=== PATIENT | female | born 1950 | race Hispanic/Latino ===

== ENCOUNTER → 2017-11-08 | Outpatient (CLI) | payer MEDICARE | END | disposition home or self-care (01) | LOC: SHCH 14:42 | PROVIDERS: ATTEND Internal Medicine Cardiovascular Disease | DX: I87.2 Venous insufficiency (chronic) (peripheral) (principal) | CPT/HCPCS: 93971 ==

== ENCOUNTER 2017-11-13 17:08 | Emergency (ER) | payer MEDICARE ==
[2017-11-13] MEDS ORDERED: FLUORESCEIN SODIUM 0.6 MG STRIP ONE (17:41)
[2017-11-13] MEDS ORDERED: TETRACAINE HCL 0.5% 4 ML OPHTH SOLN ONE (17:41)
[2017-11-13] MEDS ORDERED: NA BORATE/BORIC AC/H2O/NACL 120 ML OPHTH IRRIG SOLN ONE (17:42)
[2017-11-13] MEDS ORDERED: DEXAMETHASONE SOD PHOSPHATE 10MG/ML 1ML VIAL ONE (18:39)
[2017-11-13] MEDS ORDERED: CEFTRIAXONE SODIUM 1 GM ONE (18:39)
[2017-11-13] MEDS ORDERED: LIDOCAINE HCL-MPF 1% 2ML VIAL ONE (18:39)
[2017-11-13] MEDS ORDERED: KETOROLAC TROMETHAMINE 30MG/ML ONE (18:40)
== END 2017-11-13 19:24 | disposition home or self-care (01) ==
LOC: EDH 17:08
DX: S05.02XA Injury of conjunctiva and corneal abrasion without foreign body, left eye, initial encounter (principal); L03.213 Periorbital cellulitis; X58.XXXA Exposure to other specified factors, initial encounter; Y93.89 Activity, other specified; Y92.89 Other specified places as the place of occurrence of the external cause; Y99.8 Other external cause status
CPT/HCPCS: 70450; 70486; 96372 ×3; 99284; J0696; J1100; J1885; J3490

== ENCOUNTER → 2017-12-20 | Outpatient (CLI) | payer MEDICARE | END | disposition home or self-care (01) | LOC: SHCH 13:55 | PROVIDERS: ATTEND Internal Medicine Cardiovascular Disease | DX: Z09 Encounter for follow-up examination after completed treatment for conditions other than malignant neoplasm (principal) | CPT/HCPCS: 93971 ==

== ENCOUNTER → 2018-02-16 | Outpatient (CLI) | payer MEDICARE | END | disposition home or self-care (01) | LOC: SHCH 13:09 | PROVIDERS: ATTEND Internal Medicine Cardiovascular Disease | DX: I87.2 Venous insufficiency (chronic) (peripheral) (principal); I82.403 Acute embolism and thrombosis of unspecified deep veins of lower extremity, bilateral | CPT/HCPCS: 93970 ==

== ENCOUNTER 2022-07-21 07:34 | Inpatient (IN) | payer OTHER, MEDICARE ==
[2022-07-21] VITALS (26 sets, daily range): BP systolic 132–151; BP diastolic 45–86
[~2022-07-21 07:34] MED LIST: ALEN70TA80 PO
[2022-07-21 08:24] LABS: BASOPHILS % (AUTO) 0.2 % (0.0-5.0); EOSINOPHILS % (AUTO) 0.4 % (0.0-8.0); HEMATOCRIT 39.1 % (36-48); LYMPHOCYTES % (AUTO) 22.2 % (21.0-51.0); MEAN CORPUSCULAR HEMOGLOBIN 30.5 pg (27.0-33.0); MEAN CORPUSCULAR HGB CONC 32.7 g/dL (32.0-36.0); MEAN CORPUSCULAR VOLUME 93.3 fL (79-99); MONOCYTES % (AUTO) 8.5 % (3.0-13.0); NEUTROPHILS % (AUTO) 68.5 % (40.0-77.0); PLATELET COUNT (AUTO) 260 K/uL (130-400); RED BLOOD CELL COUNT(AUTO) 4.19 MIL/uL (4.00-5.50); RED CELL DISTRIBUTION WIDTH 13.6 % (11.0-15.5); WHITE BLOOD COUNT (AUTO) 4.7 K/uL (4.8-10.8)
[2022-07-21 08:34] LABS: CREATININE 0.8 mg/dL (0.5-1.5)
[2022-07-21 08:37] LABS: INR 0.94 (0.85-1.15); PROTHROMBIN TIME 10.3 SEC (9.6-11.6)
[2022-07-21 08:39] LABS: PARTIAL THROMBOPLASTIN TIME 25.7 SEC (26.3-35.5)
[2022-07-21] MEDS ORDERED: CEFAZOLIN SODIUM 1 GM VIAL ONE (08:58)
[2022-07-21] MEDS ORDERED: LACTATED RINGERS 1000ML 1,000 ML IV ONE (08:58)
[2022-07-21] MEDS ORDERED: TRANEXAMIC ACID 1000MG/10ML ONE (10:59)
[2022-07-21] MEDS ORDERED: PROPOFOL 10 MG/ML 20ML VIAL IV ONE (12:43)
[2022-07-21] MEDS ORDERED: GLYCOPYRROLATE 1 MG/5 ML SYRINGE ONE (12:43)
[2022-07-21] MEDS ORDERED: SUCCINYLCHOLINE CHLORIDE 20 MG/ML 10 ML VIAL ONE (12:43)
[2022-07-21] MEDS ORDERED: NEOSTIGMINE 5MG/5ML SYR IV ONE (12:43)
[2022-07-21] MEDS ORDERED: FENTANYL CITRATE PF 50 MCG/1 ML 2ML VIAL ONE ×2 (12:44→13:28)
[2022-07-21] MEDS ORDERED: ROCURONIUM 10MG/1ML SYR 10 MG/ML ML ONE (12:44)
[2022-07-21] MEDS ORDERED: LIDOCAINE HCL-MPF 2% 10ML AMP IJ ONE (12:44)
[2022-07-21] MEDS ORDERED: TRANEXAMIC ACID 1000MG/10ML IV ONE (12:45)
[2022-07-21] MEDS ORDERED: CEFAZOLIN SODIUM 2 GM VIAL IV ONE (12:45)
[2022-07-21] MEDS ORDERED: ROPIVACAINE 0.5% 5MG/ML 30ML IJ ONE (12:46)
[2022-07-21] MEDS ORDERED: ONDANSETRON 4MG INJ ONE ×2 (13:25→14:55)
[2022-07-21] MEDS ORDERED: MEPERIDINE-PF 25 MG/ML SYG ONE (14:20)
[2022-07-21] MEDS: ONDANSETRON 4MG INJ IVP PRN (16:20)
[2022-07-21] MEDS: 0.9%NACL 1000ML 1,000 ML IV SCH (16:33)
[2022-07-21 16:59] LABS: APPEARANCE BODY FLUID CLOUDY (CLEAR); SPECIMENTYPE,BODY FLUID SYNOVIAL
[2022-07-21 17:00] LABS: BODY FLUID WBC 1165 /cu. mm.; COLOR,BODY FLUID DARK YELLOW (LT YELLOW); TOTAL VOLUME,BODY FLUID 2 mL
[2022-07-21 17:01] LABS: BODY FLUID RBC 2025 /cu. mm.
[2022-07-21 17:36] LABS: BF EOSINOPHIL 3 %; BF LYMPHOCYTE 8 %; BF MONOCYTE 4 %
[2022-07-21] MEDS: CEFAZOLIN SODIUM 1 GM VIAL IVP SCH (18:49)
[2022-07-21] MEDS ORDERED: MORPHINE 4 MG SYG IM PRN (21:00)
[2022-07-21] MEDS: FAMOTIDINE 20MG TAB PO SCH (22:11)
[2022-07-21] MEDS: ASPIRIN 81 MG EC TAB PO SCH (22:11)
[2022-07-21] MEDS: HYDROCODONE/ACETAMINOPHEN 5/325 MG TAB PO PRN (22:11)
[2022-07-22] VITALS: BP 129/53
[2022-07-22] MEDS: 0.9%NACL 1000ML 1,000 ML IV SCH ×2 (01:38→10:30)
[2022-07-22] MEDS: CEFAZOLIN SODIUM 1 GM VIAL IVP SCH (03:46)
[2022-07-22 04:00] VITALS: BP 112/55
[2022-07-22 05:30] LABS: HEMATOCRIT 33.3 % (36-48); MEAN CORPUSCULAR HEMOGLOBIN 30.8 pg (27.0-33.0); MEAN CORPUSCULAR HGB CONC 33.3 g/dL (32.0-36.0); MEAN CORPUSCULAR VOLUME 92.5 fL (79-99); RED BLOOD CELL COUNT(AUTO) 3.6 MIL/uL (4.00-5.50); RED CELL DISTRIBUTION WIDTH 13.3 % (11.0-15.5); WHITE BLOOD COUNT (AUTO) 8.2 K/uL (4.8-10.8)
[2022-07-22 05:54] LABS: CREATININE 0.7 mg/dL (0.5-1.5)
[2022-07-22] MEDS: HYDROCODONE/ACETAMINOPHEN 5/325 MG TAB PO PRN (07:02)
[2022-07-22 07:35] VITALS: BP 128/47
[2022-07-22] MEDS: ASPIRIN 81 MG EC TAB PO SCH ×2 (09:17→19:35)
[2022-07-22] MEDS: POLYETHYLENE GLYCOL 3350 17 GM POWD.PACK PO SCH (09:17)
[2022-07-22] MEDS: HYDROCODONE/ACETAMINOPHEN 10/325 MG TAB PO PRN ×3 (09:17→19:35)
[2022-07-22 11:20] VITALS: BP 136/47
[2022-07-22 15:20] VITALS: BP 121/56
[2022-07-22] MEDS: FAMOTIDINE 20MG TAB PO SCH (19:35)
[2022-07-22 20:00] VITALS: BP 118/55
[2022-07-23] VITALS (7 sets, daily range): BP systolic 131–157; BP diastolic 57–79
[2022-07-23] MEDS: ASPIRIN 81 MG EC TAB PO SCH ×2 (07:59→19:53)
[2022-07-23] MEDS: HYDROCODONE/ACETAMINOPHEN 5/325 MG TAB PO PRN (07:59)
[2022-07-23] MEDS: POLYETHYLENE GLYCOL 3350 17 GM POWD.PACK PO SCH (08:00)
[2022-07-23] MEDS: HYDROCODONE/ACETAMINOPHEN 10/325 MG TAB PO PRN ×2 (15:31→19:53)
[2022-07-23] MEDS: FAMOTIDINE 20MG TAB PO SCH (19:53)
[2022-07-24] MEDS: ONDANSETRON 4MG INJ IVP PRN (04:11)
[2022-07-24 04:15] VITALS: BP 158/61
[2022-07-24 08:00] VITALS: BP 155/87
[2022-07-24] MEDS: HYDROCODONE/ACETAMINOPHEN 10/325 MG TAB PO PRN (08:32)
[2022-07-24] MEDS: ASPIRIN 81 MG EC TAB PO SCH (08:32)
[2022-07-24] MEDS: POLYETHYLENE GLYCOL 3350 17 GM POWD.PACK PO SCH (08:32)
[2022-07-24] MEDS ORDERED: BISACODYL 10 MG SUPP.RECT RC ONE (09:54)
[2022-07-24 11:18] VITALS: BP 153/75
[2022-07-24] MEDS ORDERED: BISACODYL 10 MG SUPP.RECT RC PRN (14:30)
[2022-07-24 16:00] VITALS: BP 164/71
== END 2022-07-24 18:56 | DRG 489 ==
LOC: OBSVTOIN 07:34 → INTOOBSV 07:34 → DAHIP 07:34 → 4DH 16:10
PROVIDERS: ADMIT Orthopaedic Surgery; ATTEND Orthopaedic Surgery
PROC: 0SUV09Z Supplement Right Knee Joint, Tibial Surface with Liner, Open Approach (ICD-10-PCS; 2022-07-21)
PROC: 0SPC09Z Removal of Liner from Right Knee Joint, Open Approach (ICD-10-PCS; principal; 2022-07-21 12:43)
DX: T84.092A Other mechanical complication of internal right knee prosthesis, initial encounter (principal); X58.XXXA Exposure to other specified factors, initial encounter; Z20.822 Contact with and (suspected) exposure to COVID-19
CPT/HCPCS: 36415; 80048; 85025; 85027; 85610; 85730; 87070; 87076; 87426; 89051; 93005; 97039; G0378; J0330; J0690; J2175; J2270; J2405; J2704; J2710; J2795; J3010; J3490; J7030; J7120